=== PATIENT | female | born 1950 | race Caucasian/White ===

== ENCOUNTER 2024-05-30 12:22 | Outpatient (CLI) | payer MEDICARE, BC, SELFPAY ==
--- NOTE | 2024-05-30 12:15 | DI.DEXA_ITS ---
Exam(s) XR DEXA BONE DENSITY W/WO KEENAN EXAM: XR DEXA BONE DENSITY W/WO KEENAN CLINICAL HISTORY: Yearly annual, N95.9 Unspecified menopausal and perimenopausal disorder TECHNIQUE: Hologic Horizon C densitometer analysis of left hip, lumbar spine and left forearm. Lat eral survey image of the thoracic and lumbar spine. COMPARISON: No exams were available for comparison FINDINGS: Lateral view of the thoracic and lumbar spine shows no evidence of compression fractures. Bone mineral density measurements of the lumbar spine correspond to a total T-score of -1.4, in the osteopenic range. Bone mineral density measurements of the left hip correspond to a total T-score of -1.4. The femora l neck T-score is -1.5, in the osteopenic range.. Theleft forearm bone mineral density measurements correspond to a T-score of the distal 3rd of -0.3, in the normal range.. IMPRESSION: Osteopenia of the lumbar spine and left hip. Normal bone density of the forearm.
== END 2024-05-30 12:42 ==
LOC: DI 12:22
PROVIDERS: PCP Family Medicine; Visit Provider Family Medicine
DX: N95.9 Unspecified menopausal and perimenopausal disorder (principal); M85.89 Other specified disorders of bone density and structure, multiple sites
CPT/HCPCS: 77080